=== PATIENT | male | born 1980 | race African-American/Black ===

== ENCOUNTER 2020-03-07 01:30 | Emergency (ER) | payer OTHER ==
[~2020-03-07] VITALS: Ht 167.6 cm; Wt 77.1 kg
[2020-03-07 01:42] VITALS: Ht 167.6 cm; Wt 77.1 kg
[2020-03-07 02:49] VITALS: BP 129/54
== END 2020-03-07 02:45 | disposition other institution (70) ==
LOC: ED 01:30
DX: Z02.89 Encounter for other administrative examinations (principal)